=== PATIENT | male | born 1985 | race Caucasian/White ===

== ENCOUNTER 2021-04-09 19:34 | Emergency (ER) | payer BC ==
[~2021-04-09] VITALS: Ht 175.2 cm; Wt 95.2 kg
[2021-04-09] MEDS ORDERED: EPIN0.3P3 IJ (19:53)
--- NOTE | 2021-04-09 19:54 | ED General ---
General Chief Complaint: Allergic Reaction Stated Complaint: BEE STING/SWELLING/ITCHING ALL OVER/RAPID HR Source of Information: Patient Exam Limitations: No Limitations History of Present Illness Date Seen by Provider: Apr 09, 2021 Time Seen by Provider: 19:49 Initial Comments To ER with reports of allergic reaction to a bee sting. He is not sure what type of bee it was, he is never had a reaction like this before. He was drinking a few beers which she has had before. He felt a sharp stinging pain on the back of his left shoulder and then saw an insect flying off. He then noticed the bottoms of his feet to begin itching. He was given children's Benadryl by someone on scene. Then came to the emergency room where he complains of chest tightness, diffuse rash and itching. Timing/Duration: 1-2 Days Severity: Moderate Allergies and Home Medications Allergies Coded Allergies: Penicillins (Verified Allergy, Unknown, 04/09/21) Home Medications Epinephrine 0.3 Mg/0.3 Ml Auto.injct, 0.3 MG IJ PRN Prescribed by: LANE MICHAEL on 04/09/211952 Patient Home Medication List Home Medication List Reviewed: Yes Review of Systems Review of Systems Constitutional: see HPI EENTM: see HPI Respiratory: no symptoms reported Cardiovascular: no symptoms reported Genitourinary: no symptoms reported Musculoskeletal: no symptoms reported Skin: see HPI Psychiatric/Neurological: No Symptoms Reported Hematologic/Lymphatic: No Symptoms Reported Immunological/Allergic: no symptoms reported Physical Exam Vital Signs Vital Signs - First Documented 04/09/21 19:35 Temp 36.5 Pulse 71 Resp 16 B/P (MAP) 98/56 (70) Pulse Ox 96 Capillary Refill : Height, Weight, BMI Height: '" Weight: lbs. oz. kg; BMI Method: General Appearance: No Apparent Distress, WD/WN, Other (Alert and oriented no distress GCS 15. Heart rate is in the 70s sinus, blood pressure initially 87 systolic but is up to 116/75 at the time. No stridor no wheezing) Eyes: Bilateral Eye Normal Inspection, Bilateral Eye PERRL, Bilateral Eye EOMI HEENT: PERRL/EOMI, TMs Normal Neck: Full Range of Motion, Normal Inspection Respiratory: No Accessory Muscle Use, No Respiratory Distress Cardiovascular: Regular Rate, Rhythm, Normal Peripheral Pulses Gastrointestinal: Non Tender, Soft Extremity: Normal Capillary Refill, Normal Inspection Neurologic/Psychiatric: Alert, Oriented x3 Skin: Other (Diffuse urticaria noted) Progress/Results/Core Measures Suspected Sepsis SIRS Temperature: Pulse: Respiratory Rate: Blood Pressure / Mean: Results/Orders My Orders Orders - LANE MICHAEL APRN Diphenhydramine Injection (Benadryl Inje (04/09/21 20:00) Famotidine Injection (Pepcid Injection) (04/09/21 20:00) Methylprednisolone Sod Succ (Solu-Medrol (04/09/21 20:00) Epinephrine 1 Mg Injection (Adrenalin I (04/09/21 20:00) Lorazepam Injection (Ativan Injection) (04/09/21 20:15) Lidocaine 2% Viscous 15 Ml (Xylocaine Vi (04/09/21 20:08) Ns Iv 1000 Ml (Sodium Chloride 0.9%) (04/09/21 20:15) Ekg Tracing (04/09/21 20:12) Medications Given in ED Current Medications Medications Dose Ordered Sig/Edgar Route Start Time Stop Time Status Last Admin Dose Admin Al Hydrox/Mg Hydrox/Simethicone 30 ml ONCE ONCE PO 04/09/21 20:15 04/09/21 20:16 DC 04/09/21 20:17 30 ML Diphenhydramine HCl 50 mg ONCE ONCE IVP 04/09/21 20:00 04/09/21 20:01 DC 04/09/21 19:39 50 MG Epinephrine HCl 0.3 mg ONCE ONCE IM 04/09/21 20:00 04/09/21 20:01 DC 04/09/21 20:00 0.3 MG Famotidine 20 mg ONCE ONCE IVP 04/09/21 20:00 04/09/21 20:01 DC 04/09/21 19:40 20 MG Lidocaine HCl 15 ml ONCE ONCE PO 04/09/21 20:15 04/09/21 20:16 DC 04/09/21 20:17 15 ML Lorazepam 0.5 mg ONCE PRN IVP 04/09/21 20:15 04/09/21 20:19 0.5 MG Methylprednisolone Sodium Succinate 125 mg ONCE ONCE IVP 04/09/21 20:00 04/09/21 20:01 DC 04/09/21 19:41 125 MG Vital Signs/I&O 04/09/21 19:35 Temp 36.5 Pulse 71 Resp 16 B/P (MAP) 98/56 (70) Pulse Ox 96 Capillary Refill : Departure Communication (Admissions) Family Conversation According to who is a good good EKG done at 2026 shows sinus rhythm rate of [address] segment changes 8pm his throat is feeling scratchy, will order epinephrine 2100-resting comfortably in bed. The wheals have resolved. Heart rate is 89 blood pressure 117/75 oxygen 96% room air. No longer itching. No chest pain. Will observe for another hour. 2200-Still symptom and rash free. Will dc to home. Impression Primary Impression: Allergic reaction Disposition: HOME, SELF-CARE Condition: Stable Departure-Patient Inst. Decision time for Depature: 19:52 Referrals: UNKNOWN (PCP/Family) Primary Care Physician Patient Instructions: Anaphylaxis (DC), Insect Bites and Stings (DC) Add. Discharge Instructions: 1. For any recurrent itching take 1-2 Benadryl every 4-6 hours. Do this for the next day. You could also take cetirizine which is less sedating than Benadryl. Return to ER for any intolerable symptoms. Fill your epinephrine pen and keep this on hand in case you are ever far away from a healthcare facility and have a reaction. All discharge instructions reviewed with patient and/or family. Voiced understanding. Scripts Epinephrine (Epipen 2-Robert) 0.3 Mg/0.3 Ml Auto.injct 0.3 MG IJ PRN, #1 EA Prov: LANE MICHAEL APRN 04/09/[address] MICHAEL APRN Apr 09, 2021 19:54
[2021-04-09] MEDS ORDERED: FAMOTIDINE 20MG/2ML IV (PEPCID) IVP ONE (20:00)
[2021-04-09] MEDS ORDERED: diphenhydrAMINE 50 MG/ML INJ (BENADRYL) IVP ONE (20:00)
[2021-04-09] MEDS ORDERED: methylPREDNISolone 125 MG (Solu-MEDROL) VIAL IVP ONE (20:00)
[2021-04-09] MEDS ORDERED: EPINEPHrine INJECTION 1 MG/ML AMP IM ONE (20:00)
[2021-04-09] MEDS ORDERED: LIDOCAINE 2% VISCOUS 15 ML UDC ONE (20:08)
[2021-04-09] MEDS ORDERED: ANTACID SUSP 30 ML UDC (MYLANTA) PO ONE (20:15)
[2021-04-09] MEDS ORDERED: LORazepam INJ 2 MG/ML (ATIVAN) VIAL IVP PRN (20:15)
[2021-04-09] MEDS ORDERED: LIDOCAINE 2% VISCOUS 15 ML UDC PO ONE (20:15)
[2021-04-09] MEDS ORDERED: NS IV 1000 ML 1,000 ML IV SCH (20:15)
[2021-04-09 22:08] VITALS: BP 106/77
== END 2021-04-09 22:08 | disposition home or self-care (01) ==
LOC: ER 19:37
DX: T63.441A Toxic effect of venom of bees, accidental (unintentional), initial encounter (principal)
CPT/HCPCS: 93005